=== PATIENT | female | born 1995 | race Caucasian/White ===

== ENCOUNTER 2019-05-13 11:03 | Emergency (ER) | payer OTHER, SELFPAY ==
[2019-05-13 11:43] LABS: Urine Blood TRACE (NEG); Urine Glucose NEGATIVE (NEG); Urine Protein NEGATIVE (NEG); Urine pH 5.5 (5.0-7.0)
[2019-05-13 11:45] LABS: Urine Bacteria 20-50 /HPF (<20); Urine Culture Reflex Order REFLEXED; Urine Mucus LIGHT /HPF (NONE SEEN); Urine RBC <5 /HPF (NONE SEEN)
--- NOTE | 2019-05-13 12:17 | ER ---
Nurse's Notes [facility] Name: Rosa Isela Escobar Age: 23 yrs Sex: Female : 1995 Arrival Date: 05/13/2019 Time: 11:05 Bed 14 Private MD: Diagnosis: Dysuria Presentation: 05/13 11:15 Presenting complaint: Patient states: Burning w/ urination, urinary frequency, low back ph pain, and nausea x 1 week, denies vomiting or fever, states, " My boyfriend called me today and told me to come get checked because he is having the same symptoms". Transition of care: patient was not received from another setting of care. Onset of symptoms was May 13, 2019. Risk Assessment: Do you want to hurt yourself or someone else? Patient reports no desire to harm self or others. Initial Sepsis Screen: Does the patient meet any 2 criteria? No. Patient's initial sepsis screen is negative. Does the patient have a suspected source of infection? Yes: Dysuria/Frequency/Urgency/UTI. Care prior to arrival: None. 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 - Social history:: Smoking status: Patient uses tobacco products, denies chronic smoking, but will smoke occasionally. - Ebola Screening: : Patient negative for fever greater than or equal to 101.5 degrees Fahrenheit, and additional compatible Ebola Virus Disease symptoms Patient denies exposure to infectious person Patient denies travel to an Ebola-affected area in the 21 days before illness onset No symptoms or risks identified at this time. Screenin:28 Abuse screen: Denies threats or abuse. Denies injuries from another. Nutritional ca1 screening: No deficits noted. Tuberculosis screening: No symptoms or risk factors identified. Fall Risk None identified. Assessment: 11:28 General: Appears in no apparent distress. comfortable, Behavior is calm, cooperative, ca1 appropriate for age. Pain: Complains of pain in right low back Pain radiates to right lower quadrant Pain currently is 4 out of 10 on a pain scale. Pain began 2-3 days ago. Neuro: Level of Consciousness is awake, alert, obeys commands, Oriented to person, place, time, situation, Appropriate for age. GI: Abdomen is round non-distended, Bowel sounds present X 4 quads. Abd is soft X 4 quads Abdomen is tender to palpation in right lower quadrant Reports nausea. : Urine is cloudy. EENT: No deficits noted. No signs and/or symptoms were reported regarding the EENT system. Derm: Skin is intact, is healthy with good turgor, Skin is pink, warm \\T\\ dry. Musculoskeletal: Circulation, motion, and sensation intact. Capillary refill < 3 seconds, Range of motion: intact in all extremities. 12:34 Reassessment: Patient appears in no apparent distress at this time. Patient is alert, ca1 oriented x 3, equal unlabored respirations, skin warm/dry/pink. Kept a few minutes for observation after ABX admin. Vital Signs: 11:18 BP 114 / 82; Pulse 71; Resp 18; Temp 97.7; Pulse Ox 98% on R/A; Weight 108.86 kg; ph Height 5 ft. 1 in. (154.94 cm); Pain 4/10; 12:34 BP 107 / 75; Pulse 65; Resp 17 S; Pulse Ox 100% on R/A; ca1 11:18 Body Mass Index 45.35 (108.86 kg, 154.94 cm) ph ED Course: 11:05 Patient arrived in ED. ag5 11:08 Melvin Pop [facility]C [facility]. la1 11:08 Jones Rajan MD is Attending Physician. la1 11:18 Triage completed. ph 11:18 Mai Land, ASHLEY is Primary Nurse. ca1 11:28 Patient has correct armband on for positive identification. Bed in low position. Call ca1 light in reach. Side rails up X 1. Pulse ox on. NIBP on. Warm blanket given. 11:28 Arm band placed on right wrist. ca1 11:28 Patient did not have IV access during this emergency room visit. ca1 12:35 No provider procedures requiring assistance completed. ca1 Administered Medications: 12:20 Drug: Macrobid 100 mg Route: PO; ca1 12:54 Follow up: Response: No adverse reaction ca1 12:21 Drug: Zithromax 1 grams Route: PO; ca1 12:55 Follow up: Response: No adverse reaction ca1 12:25 Drug: Rocephin (cefTRIAXone) 250 mg Route: IM; Site: right gluteus; ca1 12:54 Follow up: Response: No adverse reaction ca1 Outcome: 12:16 Discharge ordered by MD. kaufman 12:35 Discharge instructions given to patient, Instructed on discharge instructions, follow ca1 up and referral plans. medication usage, safe sex practices, Demonstrated understanding of instructions, follow-up care, medications, Prescriptions given X 2. 12:55 Discharged to home ambulatory. ca1 12:55 Condition: stable 12:55 Patient left the ED. ca1 Signatures: Melvin Pop, MANAGER RETAIL STORE-C MANAGER RETAIL STORE-Cla1 Sumi Gonsalez RN RN Mai Land RN RN ca1 Ivet, Alicia ag5
--- NOTE | 2019-05-13 12:17 | EDPHYS ---
Physician Documentation [facility] Name: Rosa Isela Escobar Age: 23 yrs Sex: Female : 1995 Arrival Date: 05/13/2019 Time: 11:05 Bed 14 Private MD: ED Physician Jones Rajan HPI: 05/13 11:24 This 23 yrs old Female presents to ER via Ambulatory with complaints of Low la1 Back Pain, Possible STI. 11:24 The patient presents with urinary symptoms, dysuria. Onset: The symptoms/episode la1 began/occurred 2 week(s) ago. Modifying factors: The symptoms are alleviated by nothing, the symptoms are aggravated by nothing. Associated signs and symptoms: Pertinent positives: dysuria. The patient is sexually active, reportedly has a single partner. The patient has experienced similar episodes in the past. pt reports she has had burning with urination for the last 2 weeks, boyfriend called today and said he has similar sx. Pt reports that she has had multiple UTIs in the past and this feels exactly like what that felt like.. 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 - Social history:: Smoking status: Patient uses tobacco products, denies chronic smoking, but will smoke occasionally. - Ebola Screening: : Patient negative for fever greater than or equal to 101.5 degrees Fahrenheit, and additional compatible Ebola Virus Disease symptoms Patient denies exposure to infectious person Patient denies travel to an Ebola-affected area in the 21 days before illness onset No symptoms or risks identified at this time. ROS: 11:25 Positive for urinary symptoms. la1 11:25 Constitutional: Negative for fever, chills, and weight loss, Eyes: Negative for injury, pain, redness, and discharge, ENT: Negative for injury, pain, and discharge, Cardiovascular: Negative for chest pain, palpitations, and edema, Respiratory: Negative for shortness of breath, cough, wheezing, and pleuritic chest pain, Abdomen/GI: Negative for abdominal pain, nausea, vomiting, diarrhea, and constipation, Back: Negative for injury and pain. 11:25 MS/Extremity: Negative for injury and deformity, Neuro: Negative for headache, weakness, numbness, tingling, and seizure. 11:25 : Positive for urinary symptoms. Exam: 11:27 Constitutional: This is a well developed, well nourished patient who is awake, alert, la1 and in no acute distress. Head/Face: Normocephalic, atraumatic. Chest/axilla: Normal chest wall appearance and motion. Nontender with no deformity. No lesions are appreciated. Cardiovascular: Regular rate and rhythm with a normal S1 and S2. No gallops, murmurs, or rubs. Normal PMI, no JVD. No pulse deficits. Respiratory: Lungs have equal breath sounds bilaterally, clear to auscultation No rales, rhonchi or wheezes noted. No increased work of breathing, no retractions or nasal flaring. Abdomen/GI: Soft, non-tender, with normal bowel sounds. No distension or tympany. No guarding or rebound. No evidence of tenderness throughout. Back: No spinal tenderness. No costovertebral tenderness. Full range of motion. MS/ Extremity: Pulses equal, no cyanosis. Neurovascular intact. Full, normal range of motion. Vital Signs: 11:18 BP 114 / 82; Pulse 71; Resp 18; Temp 97.7; Pulse Ox 98% on R/A; Weight 108.86 kg; ph Height 5 ft. 1 in. (154.94 cm); Pain 4/10; 12:34 BP 107 / 75; Pulse 65; Resp 17 S; Pulse Ox 100% on R/A; ca1 11:18 Body Mass Index 45.35 (108.86 kg, 154.94 cm) ph MDM: 11:08 Patient medically screened. la1 12:14 Data reviewed: vital signs, nurses notes, I have discussed the patient's la1 presentation/case with the attending Emergency Department Physician; and as a result, I will discharge patient. Data interpreted: Pulse oximetry: on room air is 98 %. Counseling: I had a detailed discussion with the patient and/or guardian regarding: the historical points, exam findings, and any diagnostic results supporting the discharge/admit diagnosis, lab results, the need for outpatient follow up, a family practitioner, an OB/Gyne specialist. 05/13 11:24 Order name: Urine Microscopic Only; Complete Time: 12:07 la1 05/13 11:29 Order name: Urine Dipstick--Ancillary (enter results); Complete Time: 12:07 em1 05/13 11:29 Order name: Urine --Ancillary (enter results); Complete Time: 12:07 em1 05/13 11:47 Order name: Urine Culture [facility] 05/13 11:24 Order name: Urine Dipstick-Ancillary (obtain specimen); Complete Time: 11:25 la05/13 11:24 Order name: Urine Test (obtain specimen); Complete Time: 11:25 la Administered Medications: 12:20 Drug: Macrobid 100 mg Route: PO; ca1 12:54 Follow up: Response: No adverse reaction ca1 12:21 Drug: Zithromax 1 grams Route: PO; ca1 12:55 Follow up: Response: No adverse reaction ca1 12:25 Drug: Rocephin (cefTRIAXone) 250 mg Route: IM; Site: right gluteus; ca1 12:54 Follow up: Response: No adverse reaction ca1 Disposition: 18:29 Co-signature as Attending Physician, Jones Rajan MD. rn Disposition: 05/13/19 12:16 Discharged to Home. Impression: Dysuria. - Condition is Stable. - Discharge Instructions: Dysuria, Sexually Transmitted Disease, Sexually Transmitted Disease, [id number]. - Prescriptions for Pyridium 200 mg Oral Tablet - take 1 tablet by ORAL route every 8 hours for 3 days; 9 tablet. Macrobid 100 mg Oral Capsule - take 1 capsule by ORAL route every 12 hours for 7 days; 14 capsule. - Work release form, Medication Reconciliation Form, Thank You Letter, Antibiotic Education form. - Follow up: Private Physician; When: 2 - 3 days; Reason: Recheck today's complaints, Re-evaluation by your physician. - Problem is new. - Symptoms are unchanged. Signatures: Dispatcher [employer] Jones Gonzalez MD MD rn Melvin Pop, CLINICAL COORDINATOR-C CLINICAL COORDINATOR-Cla1 Sumi Gonsalez RN RN ph Mai Land RN RN ca1 Corrections: (The following items were deleted from the chart) 12:55 12:16 05/13/2019 12:16 Discharged to Home. Impression: Dysuria. Condition is Stable. ca1 Forms are Medication Reconciliation Form, Thank You Letter, Antibiotic Education, Prescription Opioid Use. Follow up: Private Physician; When: 2 - 3 days; Reason: Recheck today's complaints, Re-evaluation by your physician. Problem is new. Symptoms are unchanged. la1
[2019-05-13] MEDS ORDERED: AZITHROMYCIN 250 MG TAB ONE (12:27)
[2019-05-13] MEDS ORDERED: NITROFURAN MACRO 100 MG CAP PO ONE (12:28)
[2019-05-13] MEDS ORDERED: LIDOCAINE 1% MPF 2 ML AMPULE ONE (12:28)
[2019-05-13] MEDS ORDERED: CEFTRIAXONE 250 MG/VIAL ONE (12:28)
[2019-05-13 13:03] VITALS: TEMP 97.7
[2019-05-13 13:05] VITALS: BP 107/75; O2SAT 100
== END 2019-05-13 12:55 | disposition home or self-care (01) ==
LOC: ER 11:03
DX: R30.0 Dysuria (principal); Z88.1 Allergy status to other antibiotic agents; Z72.0 Tobacco use
CPT/HCPCS: 81003; 81015; 81025; 87086; 87088; 96372; 99283; J0696; J2001

== ENCOUNTER 2019-07-17 19:46 | Emergency (ER) | payer SELFPAY ==
--- NOTE | 2019-07-17 20:22 | EDPHYS ---
Physician Documentation [facility] Name: Rosa Isela Escobar Age: 23 yrs Sex: Female : 1995 Arrival Date: 07/17/2019 Time: 19:51 Bed 20 Private MD: ED Physician Arnol Damon HPI: 07/16 20:28 This 23 yrs old Female presents to ER via Ambulatory with complaints of snw Fever, Breathing Difficulty, Rash. 20:28 The patient reports fever, not measured (subjective). Onset: The symptoms/episode snw began/occurred gradually. Modifying factors: dx yesterday with [place]. Associated signs and symptoms: Pertinent positives: rash. Severity of symptoms: At their worst the symptoms were moderate in the emergency department the symptoms are unchanged. It is unknown whether or not the patient has had similar symptoms in the past. The patient has been recently seen by a physician: the patient's primary care provider, with similar presenting complaints, and apparently given a diagnosis of [place]. 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 - Social history:: Smoking status: Patient reports the use of cigarette tobacco products, denies chronic smoking, but will smoke occasionally. ROS: 20:26 Constitutional: Negative for chills and weight loss, + rash Eyes: Negative for injury, snw pain, redness, and discharge, ENT: Negative for injury, pain, and discharge, Neck: Negative for injury, pain, and swelling, Cardiovascular: Negative for chest pain, palpitations, and edema, Respiratory: Negative for shortness of breath, cough, wheezing, and pleuritic chest pain, Abdomen/GI: Negative for abdominal pain, nausea, vomiting, diarrhea, and constipation, Back: Negative for injury and pain, : Negative for injury, bleeding, discharge, and swelling, MS/Extremity: Negative for injury and deformity, Skin: Negative for injury and discoloration, + rash Neuro: Negative for headache, weakness, numbness, tingling, and seizure, Psych: Negative for depression, anxiety, suicide ideation, homicidal ideation, and hallucinations. Exam: 20:25 Head/Face: Normocephalic, atraumatic. Eyes: Pupils equal round and reactive to light, snw extra-ocular motions intact. Lids and lashes normal. Conjunctiva and sclera are non-icteric and not injected. Cornea within normal limits. Periorbital areas with no swelling, redness, or edema. ENT: Nares patent. No nasal discharge, no septal abnormalities noted. Tympanic membranes are normal and external auditory canals are clear. Oropharynx with no redness, swelling, or masses, exudates, or evidence of obstruction, uvula midline. Mucous membranes moist. Neck: Trachea midline, no thyromegaly or masses palpated, and no cervical lymphadenopathy. Supple, full range of motion without nuchal rigidity, or vertebral point tenderness. No Meningismus. Chest/axilla: Normal chest wall appearance and motion. Nontender with no deformity. No lesions are appreciated. Cardiovascular: Tachycardic rate and rhythm with a normal S1 and S2. No gallops, murmurs, or rubs. Normal PMI, no JVD. No pulse deficits. Respiratory: Lungs have equal breath sounds bilaterally, clear to auscultation and percussion. No rales, rhonchi or wheezes noted. No increased work of breathing, no retractions or nasal flaring. Abdomen/GI: Soft, non-tender, with normal bowel sounds. No distension or tympany. No guarding or rebound. No evidence of tenderness throughout. Back: No spinal tenderness. No costovertebral tenderness. Full range of motion. Skin: Warm, dry with normal turgor. Normal color with no lesions, and no evidence of cellulitis. folliculitis at shaved perineum MS/ Extremity: Pulses equal, no cyanosis. Neurovascular intact. Full, normal range of motion. Neuro: Awake and alert, GCS 15, oriented to person, place, time, and situation. Cranial nerves II-XII grossly intact. Motor strength 5/5 in all extremities. Sensory grossly intact. Cerebellar exam normal. Normal gait. Psych: Awake, alert, with orientation to person, place and time. Behavior, mood, and affect are within normal limits. 20:25 Constitutional: The patient appears alert, awake, non-toxic. Vital Signs: 19:59 BP 130 / 83; Pulse 126; Resp 18; Temp 100.6; Pulse Ox 97% ; Weight 90.72 kg; Height 5 wh ft. 1 in. (154.94 cm); 20:34 BP 107 / 92; Pulse 108; Resp 18; Pulse Ox 98% on R/A; wh 19:59 Body Mass Index 37.79 (90.72 kg, 154.94 cm) MDM: 20:12 Patient medically screened. [facility] 20:26 Data reviewed: vital signs, nurses notes. Data interpreted: Pulse oximetry: on room air snw is 97 %. Interpretation: normal. Counseling: I had a detailed discussion with the patient and/or guardian regarding: the historical points, exam findings, and any diagnostic results supporting the discharge/admit diagnosis, the presence of at least one elevated blood pressure reading (>120/80) during this emergency department visit, the need for outpatient follow up, for definitive care, to return to the emergency department if symptoms worsen or persist or if there are any questions or concerns that arise at home. Special discussion: Based on the history and exam findings, there is no indication for further emergent testing or inpatient evaluation. I discussed with the patient/guardian the need to see the primary care provider for further evaluation of the symptoms. Administered Medications: 20:24 Drug: Tylenol 1000 mg Route: PO; rr5 20:36 Follow up: Response: No adverse reaction 20:24 Drug: Doxycycline 100 mg Route: PO; rr5 20:36 Follow up: Response: No adverse reaction Disposition: 07/17 18:06 Co-signature as Attending Physician, Arnol Damon MD I agree with the assessment and [facility] plan of care. Disposition: 07/17/19 20:21 Discharged to Home. Impression: Folliculitis, Infectious mononucleosis - dx yesterday. - Condition is Stable. - Discharge Instructions: Fever, Adult, Infectious Mononucleosis, Folliculitis, Rehydration, Adult. - Prescriptions for Doxycycline Hyclate 100 mg Oral Tablet - take 1 tablet by ORAL route every 12 hours; 20 tablet. - Medication Reconciliation Form, Thank You Letter, Antibiotic Education, Prescription Opioid Use form. - Follow up: Emergency Department; When: As needed; Reason: Worsening of condition. Follow up: Private Physician; When: 7 - 10 days; Reason: Recheck today's complaints, Continuance of care, Re-evaluation by your physician. Signatures: NelsonArnol MD MD cha Therrien, Shelly, BURRING WHEEL OPERATOR-C BURRING WHEEL OPERATOR-Csnw Tani Willis Raymond, RN RN rr5 Corrections: (The following items were deleted from the chart) 07/16 20:28 20:25 Head/Face: Normocephalic, atraumatic. Eyes: Pupils equal round and reactive to snw light, extra-ocular motions intact. Lids and lashes normal. Conjunctiva and sclera are non-icteric and not injected. Cornea within normal limits. Periorbital areas with no swelling, redness, or edema. ENT: Nares patent. No nasal discharge, no septal abnormalities noted. Tympanic membranes are normal and external auditory canals are clear. Oropharynx with no redness, swelling, or masses, exudates, or evidence of obstruction, uvula midline. Mucous membranes moist. Neck: Trachea midline, no thyromegaly or masses palpated, and no cervical lymphadenopathy. Supple, full range of motion without nuchal rigidity, or vertebral point tenderness. No Meningismus. Chest/axilla: Normal chest wall appearance and motion. Nontender with no deformity. No lesions are appreciated. Cardiovascular: Regular rate and rhythm with a normal S1 and S2. No gallops, murmurs, or rubs. Normal PMI, no JVD. No pulse deficits. Respiratory: Lungs have equal breath sounds bilaterally, clear to auscultation and percussion. No rales, rhonchi or wheezes noted. No increased work of breathing, no retractions or nasal flaring. Abdomen/GI: Soft, non-tender, with normal bowel sounds. No distension or tympany. No guarding or rebound. No evidence of tenderness throughout. Back: No spinal tenderness. No costovertebral tenderness. Full range of motion. Skin: Warm, dry with normal turgor. Normal color with no lesions, and no evidence of cellulitis. folliculitis at shaved perineum MS/ Extremity: Pulses equal, no cyanosis. Neurovascular intact. Full, normal range of motion. Neuro: Awake and alert, GCS 15, oriented to person, place, time, and situation. Cranial nerves II-XII grossly intact. Motor strength 5/5 in all extremities. Sensory grossly intact. Cerebellar exam normal. Normal gait. Psych: Awake, alert, with orientation to person, place and time. Behavior, mood, and affect are within normal limits. snw 20:36 20:21 07/17/2019 20:21 Discharged to Home. Impression: Folliculitis; Infectious wh mononucleosis - dx yesterday. Condition is Stable. Forms are Medication Reconciliation Form, Thank You Letter, Antibiotic Education, Prescription Opioid Use. Follow up: Emergency Department; When: As needed; Reason: Worsening of condition. Follow up: Private Physician; When: 7 - 10 days; Reason: Recheck today's complaints, Continuance of care, Re-evaluation by your physician. snw
--- NOTE | 2019-07-17 20:22 | ER ---
Nurse's Notes [facility] Name: Rosa Isela Escobar Age: 23 yrs Sex: Female : 1995 Arrival Date: 07/17/2019 Time: 19:51 Bed 20 Private MD: Diagnosis: Folliculitis;Infectious mononucleosis-dx yesterday Presentation: 07/16 19:59 Chief complaint: Patient states: Diagnosed with [place] yesterday from [place]. Started fever this morning together with cough, shortness of breath and rash. Pt states was swabbed for Strep but was negative. Coronavirus screen: Patient reports a subjective fever or greater than 100.4F, or cough, or shortness of breath, or difficulty breathing. Surgical mask placed on patient. Patient moved to private room, placed in contact and droplet isolation with eye protection until further assessment. Patient denies travel on a cruise ship or to a country the [facility] currently lists as an affected area. Patient denies contact with known and/or suspected case of COVID-19. Ebola Screen: Patient negative for fever greater than or equal to 101.5 degrees Fahrenheit, and additional compatible Ebola Virus Disease symptoms Patient denies exposure to infectious person. Initial Sepsis Screen: Does the patient meet any 2 criteria? HR > 90 bpm. Does the patient have a suspected source of infection? Yes: Other: Diagnosed with [place]. Risk Assessment: Do you want to hurt yourself or someone else? Patient reports no desire to harm self or others. 19:59 Method Of Arrival: Ambulatory 19:59 Acuity: PERFECTO 4 20:07 Onset of symptoms was July 17, 2019. Triage Assessment: 20:06 Respiratory: Onset: The symptoms/episode began/occurred this morning, the patient reports symptoms have resolved. 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 - Social history:: Smoking status: Patient reports the use of cigarette tobacco products, denies chronic smoking, but will smoke occasionally. Screenin:05 Abuse screen: Denies threats or abuse. Denies injuries from another. Nutritional wh screening: No deficits noted. Tuberculosis screening: No symptoms or risk factors identified. Fall Risk None identified. Assessment: 20:05 General: Appears in no apparent distress. Behavior is calm, cooperative, appropriate wh for age. Pain: Denies pain. Neuro: Level of Consciousness is awake, alert, obeys commands, Oriented to person, place, time, situation, Appropriate for age. Cardiovascular: Heart tones S1 S2 Rhythm is regular. Respiratory: Reports shortness of breath cough that is Airway is patent Respiratory effort is even, unlabored, Respiratory pattern is regular, symmetrical, Breath sounds are clear bilaterally. GI: Abdomen is flat, non-distended. : No signs and/or symptoms were reported regarding the genitourinary system. EENT: Throat is pink. Derm: Skin is intact, is healthy with good turgor, Skin is pink, warm \T\ dry. normal. Musculoskeletal: Circulation, motion, and sensation intact. Vital Signs: 19:59 BP 130 / 83; Pulse 126; Resp 18; Temp 100.6; Pulse Ox 97% ; Weight 90.72 kg; Height 5 wh ft. 1 in. (154.94 cm); 20:34 BP 107 / 92; Pulse 108; Resp 18; Pulse Ox 98% on R/A; wh 19:59 Body Mass Index 37.79 (90.72 kg, 154.94 cm) ED Course: 19:51 Patient arrived in ED. es 19:52 Tani Willis is Primary Nurse. wh 19:58 Guillermo Taveras NP is PHCP. pm1 19:58 Arnol Damon MD is Attending Physician. pm1 19:59 PHCP role handed off by Guillermo Taveras NP snw 19:59 Geraldine Asher FNP-C is PHCP. snw 20:03 Triage completed. wh 20:06 Arm band placed on right wrist. wh 20:06 No provider procedures requiring assistance completed. Patient did not have IV access during this emergency room visit. 20:07 Patient has correct armband on for positive identification. Bed in low position. Call wh light in reach. Side rails up X 1. Pulse ox on. NIBP on. Administered Medications: 20:24 Drug: Tylenol 1000 mg Route: PO; rr5 20:36 Follow up: Response: No adverse reaction wh 20:24 Drug: Doxycycline 100 mg Route: PO; rr5 20:36 Follow up: Response: No adverse reaction Outcome: 20:21 Discharge ordered by . hal 20:35 Discharged to home ambulatory. 20:35 Condition: stable 20:35 Discharge instructions given to patient, Instructed on discharge instructions, follow up and referral plans. medication usage, POC Demonstrated understanding of instructions, follow-up care, medications, POC Prescriptions given X 1. 20:36 Patient left the ED. Signatures: Geraldine Asher, CANE FLUME FEEDING MACHINE OPERATOR-C CANE FLUME FEEDING MACHINE OPERATOR-Csnw Gali Espinoza Patrick, NP PROPERTY MANAGEMENT BOOKKEEPER pm1 Lazaro, Tani Sonny Chapin RN RN rr5 Corrections: (The following items were deleted from the chart) : 19:59 Acuity: PERFECTO [facility]
[2019-07-17] MEDS ORDERED: ACETAMINOPHEN 500 MG TAB ONE (20:25)
[2019-07-17] MEDS ORDERED: DOXYCYCLINE 100 MG CAP PO ONE (20:25)
[2019-07-17 20:43] VITALS: TEMP 100.6
[2019-07-17 20:44] VITALS: BP 107/92; O2SAT 98
== END 2019-07-17 20:36 | disposition home or self-care (01) ==
LOC: ER 19:46
DX: B27.90 Infectious mononucleosis, unspecified without complication (principal); L73.9 Follicular disorder, unspecified; Z88.1 Allergy status to other antibiotic agents; F17.210 Nicotine dependence, cigarettes, uncomplicated
CPT/HCPCS: 99283